=== PATIENT | male | born 1975 | race Caucasian/White ===

== ENCOUNTER 2018-11-03 20:57 | Emergency (ER) | payer MEDICAID ==
[~2018-11-03] VITALS: Ht 180.3 cm; Wt 167.4 kg
[2018-11-03 21:15] VITALS: BP_SYST 141
[2018-11-03] MEDS ORDERED: KETOROLAC TROMETHAMINE 30 MG VIAL IM ONE (23:00)
[2018-11-03] MEDS ORDERED: PREDNISONE 20 MG TABLET PO ONE (23:45)
[2018-11-03 23:50] VITALS: BP_SYST 138
== END 2018-11-03 23:50 | disposition home or self-care (01) ==
LOC: SED 20:57
DX: M10.062 Idiopathic gout, left knee (principal); E11.9 Type 2 diabetes mellitus without complications; I10 Essential (primary) hypertension
CPT/HCPCS: 36415; 73564; 84550; 96372; 99284; J1885; J7512

== ENCOUNTER 2021-03-28 16:01 | Emergency (ER) | payer MEDICAID ==
[~2021-03-28] VITALS: Ht 180.3 cm; Wt 111.1 kg
[2021-03-28 16:08] VITALS: BP_SYST 163
[2021-03-28] MEDS ORDERED: LIDOCAINE 1%, 20 ML MDV 20 ML ONE (16:28)
[2021-03-28] MEDS ORDERED: DIPH-TET-PERTUS Vaccine 0.5 ML VIAL (ADACEL) I.M. ONE (16:30)
[2021-03-28] MEDS ORDERED: ACET-2634 PO (17:40)
[2021-03-28] MEDS ORDERED: ACETAMINOPHEN 325 MG TABLET PO ONE (17:45)
[2021-03-28] MEDS ORDERED: BACITRACIN 1 GM OINT TP ONE (17:58)
[2021-03-28 17:59] VITALS: BP_SYST 159
== END 2021-03-28 17:59 | disposition home or self-care (01) ==
LOC: SED 16:01
DX: S61.210A Laceration without foreign body of right index finger without damage to nail, initial encounter (principal); I10 Essential (primary) hypertension; E11.9 Type 2 diabetes mellitus without complications; Z79.899 Other long term (current) drug therapy; W26.0XXA Contact with knife, initial encounter; Y93.89 Activity, other specified; Y92.89 Other specified places as the place of occurrence of the external cause; Y99.8 Other external cause status
CPT/HCPCS: 12001; 90471; 90715; 99283; J2001